=== PATIENT | male | born 1970 | race Caucasian/White ===

== ENCOUNTER 2025-04-12 15:33 | Emergency (ER) | payer OTHER, SELFPAY ==
[2025-04-12 15:41] VITALS: BP 163/100; PULSE 81; RESP 18; TEMP 36.9; O2SAT 98
--- NOTE | 2025-04-12 15:50 | XR_ITS ---
Examination: Duplex scan of the lower extremity, unilateral right complete Date and time of exam: April 12, 2025 1617 hours INDICATIONS: Injury to the right leg 2 hours ago with right leg pain Technique: Duplex scan of the extremity veins using B-mode/grayscale imaging and Doppler spectral analysis and color flow Attention is directed to internal echogenicity, compression and augmentation involving these veins, color flow assessment, spectral analysis Findings: Major deep venous structures in the extremity demonstrate normal course and caliber. There is no evidence of deep vein thrombosis. Normal color flow and spectral analysis Impression: Negative for DVT..
[2025-04-12 16:34] LABS: Potassium 4.5 mMol/L (3.4-5.1)
[2025-04-12 17:52] VITALS: BP 164/89; PULSE 78; RESP 18; TEMP 36.7; O2SAT 97
[2025-04-12 17:53] VITALS: BMI 36.1
[2025-04-12] MEDS: KETOROLAC INJ 60 MG/2 ML VIAL 30 MG IM (18:09)
[2025-04-12] MEDS: DEXAMETHASONE SOD PHOS INJ 10 MG/ML VIAL IM (18:09)
--- NOTE | 2025-04-12 18:16 | PD.EDLOWEX ---
Lower Extremity Injury RME/HPI General Chief Complaint: Extremity Injury, Lower Stated Complaint: INJURED THIGH Time Seen by Provider: 04/12/25 15:35 Source: patient and family Arrival date/time: 04/12/25 15:33 This is a case of 54-year-old male who came in the emergency room due to pain on the right anterior thigh for 4 days patient states that [place] accidentally he twisted his right thigh sustaining pain denies any numbness weakness or tingling sensation Mode of arrival: ambulatory Limitations: no limitations Related Data Home Medications ?Medication ?Instructions ?Recorded ?Confirmed aspirin 81 mg tablet,delayed 81 mg PO QDAY 10/31/19 02/02/20 release (Adult Aspirin Regimen) loratadine 10 mg tablet (Claritin) 10 mg PO QDAY 10/31/19 02/02/20 Previous Rx's ?Medication ?Instructions ?Recorded lactulose 20 gram/30 mL oral 20 gm (30 mL) PO QDAY #300 mL 10/31/19 solution doxycycline hyclate 100 mg tablet 100 mg PO BID #14 tabs 02/04/20 hydrocodone 7.5 mg-acetaminophen 1 tab PO Q4HR PRN Pain #30 tabs 02/04/20 325 mg tablet pantoprazole 40 mg tablet,delayed 40 mg PO ACBR PRN dyspepsia #21 02/04/20 release tabs cyclobenzaprine 10 mg tablet 10 mg PO BID #20 tabs 04/12/25 hydrocodone 5 mg-acetaminophen 325 1 tab PO Q6H PRN pain #15 tabs 04/12/25 mg tablet Allergies Allergy/AdvReac Type Severity Reaction Status Date / Time No Known Allergies Allergy Verified 04/12/25 15:35 Review of Systems Review of Systems Systems Reviewed: All systems reviewed, normal except as documented Constitutional Constitutional: Reports system reviewed and no additional complaints, except as documented, Reports as per HPI, Denies frequent falls, Denies headache(s) and Denies weakness Eyes Eyes: Denies loss of vision ENT Ears, Nose, Mouth, and Throat: Denies abnormal hearing, Denies disequilibrium, Denies dizziness, Denies headache(s), Denies neck pain and Denies vertigo Cardiovascular Cardiovascular: Reports system reviewed and no additional complaints, except as documented, Reports as per HPI and Denies syncope Respiratory Respiratory: Reports system reviewed and no additional complaints, except as documented and Reports as per HPI Gastrointestinal Gastrointestinal: Reports system reviewed and no additional complaints, except as documented and Reports as per HPI Musculoskeletal Musculoskeletal: Reports system reviewed and no additional complaints, except as documented, Reports as per HPI, Denies abnormal gait, Denies arthralgias, Denies atrophy, Denies back pain, Denies deformity, Denies joint swelling, Denies limited range of motion, Denies loss of height, Denies muscle cramps, Denies muscle weakness, Denies myalgias, Denies neck pain, Denies numbness, Denies radiating pain into limb, Denies stiffness and Denies tingling Neurologic Neurologic: Reports system reviewed and no additional complaints, except as documented, Reports as per HPI, Denies abnormal gait, Denies abnormal hearing, Denies abnormal movements, Denies abnormal speech, Denies behavioral changes, Denies burning sensations, Denies confusion, Denies convulsions, Denies disequilibrium, Denies dizziness, Denies localized weakness, Denies frequent falls, Denies headache(s), Denies lack of coordination, Denies loss of vision, Denies memory loss, Denies numbness, Denies other visual disturbances, Denies paresthesias, Denies radicular pain, Denies restless legs, Denies seizure-like activity, Denies sensory deficit, Denies syncope, Denies tingling, Denies tremor(s), Denies vertigo and Denies weakness Psychiatric Psychiatric: Denies behavioral changes, Denies confusion and Denies memory loss Past Medical History Past Medical History NEUROLOGIC: Negative Neurological Disorders, Dementia, Brain Tumor or Seizures CARDIAC: Negative Cardiac Disorders, Atrial Fibrillation, Coronary Artery Disease or Congestive Heart Failure RESPIRATORY: Negative Chronic Obstructive Pulmonary Disease (COPD), Bronchitis or Pulmonary Fibrosis GASTROINTESTINAL: Negative Gastrointestinal Disorders, Cirrhosis or Celiac Disease GENITOURINARY: Negative Genitourinary Disorders, Renal Disease, Kidney Stones or Inguinal Hernia REPRODUCTIVE: Negative Genital Herpes or Syphilis MUSCULOSKELETAL: Negative Musculoskeletal Disorders or Marfan's Syndrome ENT: Negative Blind ENDOCRINE: Negative Endocrine Disorders, Diabetes Mellitus Type 1, Diabetes Mellitus Type 2, Hypoglycemia or Hyperthyroidism HEMATOLOGIC: Negative Blood Disorders or Hemophilia PSYCHO/SOCIAL: Negative Psychiatric Problems or Bipolar Disorder OTHER HISTORY: Negative Down Syndrome, Developmental Delay, Blood Transfusions, Blood Transfusion Reaction or Anesthesia Reactions Social History SMOKING STATUS: Never smoker SUBSTANCE USE: does not use ED Exam General Limitations: Present no limitations General appearance: Present alert Head Head exam: Present atraumatic Eye Eye exam: Present normal appearance, PERRL and EOMI ENT ENT exam: Present normal exam, normal oropharynx and mucous membranes moist Neck Neck exam: Present normal inspection, full ROM and trachea midline Chest Chest inspection: Present normal inspection and symmetric chest wall rise Respiratory Respiratory exam: Present normal lung sounds bilaterally Cardiovascular Cardiovascular exam: Present regular rate, normal rhythm and normal heart sounds Abdominal Exam Abdominal exam: Present soft and normal bowel sounds Extremities Exam Extremities exam: Present normal inspection and full ROM Expanded Lower Extremity Exam Upper leg exam: Present normal inspection, full ROM, tenderness (There is mild to moderate tenderness on the right anterior thigh mild swelling no crepitation no deformity no redness no ecchymosis ROM intact pulses were full and equal motor or sensory pulses normal capillary refill less than 2 seconds) and other (Negative Ravi signs negative Homans signs no claudication); Absent swelling, abrasion, laceration, ecchymosis, deformity, crepitus, dislocation or erythema Back Exam Back exam: Present normal inspection and full ROM; Absent tenderness, CVA tenderness (R), CVA tenderness (L), muscle spasm, paraspinal tenderness, vertebral tenderness, rashes, sciatic notch tenderness (R), sciatic notch tenderness (L), straight leg raise (R) or straight leg raise (L) Neurological Exam Neurological exam: Present alert, oriented X3, CN II-XII intact, normal gait and reflexes normal; Absent motor sensory deficit Psychiatric Psychiatric exam: Present normal affect and normal mood Skin Skin exam: Present warm, dry, intact and normal color Course Quality Measures none Orders Category Date Time Status Apply knee immobilizer NOW Care 04/12/25 18:02 Active Crutches .NOW Care 04/12/25 18:02 Active US venous doppler LE RT Stat Exams 04/12/25 15:50 Completed Potassium Stat Lab 04/12/25 16:03 Completed Dexamethasone Inj [Decadron Inj] Med 04/12/25 18:02 Discontinued 10 mg IM X1 ONE Ketorolac Inj [Toradol Inj] Med 04/12/25 18:02 Discontinued 30 mg IM X1 ONE Vital Signs Vital signs: Vital Signs Temperature 98.4 F 04/12/25 15:41 Pulse Rate 81 04/12/25 15:41 Respiratory Rate 18 04/12/25 15:41 Blood Pressure 163/100 H 04/12/25 15:41 Pulse Oximetry (%) 98 04/12/25 15:41 Oxygen Delivery Method Room Air 04/12/25 15:41 Oxygen saturation 98% in room air Extremity Injury, Lower MDM Narrative MDM Narrative:: This is a case of 54-year-old male who came in the emergency room due to pain on the right anterior thigh for 4 days patient states that he was [place] the [place] when accidentally he twisted his right thigh sustaining pain denies any numbness weakness or tingling sensation physical examination patient is awake alert oriented not in distress nontoxic looking back exam is normal no paraspinal tenderness no paravertebral tenderness steady gait noted mild to moderate tenderness only on the right anterior thigh no redness no crepitation no deformity mild swelling knee leg ankle foot exam were normal ROM intact neurovascular intact ultrasound of the right lower extremity is negative for DVT patient potassium is normal at this point patient symptoms possible due to muscle spasm versus a quadricep muscle injury of the right anterior thigh I discussed with the patient my impression patient was given Toradol and dexamethasone for inflammation and pain which pain of the patient decreased patient was prescribed also with muscle relaxant Flexeril and Cushing as needed for severe pain they were advised to see an Ortho for possible MRI to rule out a muscle injury and for any worsening symptoms or any emergent concern they need to return to the emergency room immediately or call 911 Patient was discharged with comfortable condition walking with stable gait. Patient verbalized no further complains explained diagnosis and answered patient question. Patient is comfortable with the proposed management plan including the need to follow up with his/her primary care physician and any specialist if applicable Discussed patient for any urgent condition or worsening sx, He/She needed to go to emergency room immediately or call 911. Patient acknowledge the responsibility to follow up as instructed and to monitor her/his symptoms. For any persistence of the symptoms for more than 3-5 days return precaution advised. Discussed the result of the test and was given printed discharge instruction Patient data External records reviewed:: [facility] previous records Clinical information provided by:: patient Social determinants that could affect healthcare access:: none Patient has the following chronic illnesses:: None How is presenting disease/condition affected by chronic disease/condition?: no chronic disease Evaluation data The following diagnostics were reviewed and interpreted by me:: lab results and radiology exam(s) Lab and/or radiology exams considered but not ordered:: Reviewed Interpretation Summary: Reviewed Medications / Prescriptions Medications or Prescriptions considered but not ordered:: Given Medication administrations:: Medication Administration History Discontinued Medications Dexamethasone Sodium Phosphate (Dexamethasone Sod Phos Inj 10 Mg/Ml Vial) 10 mg IM X1 ONE Stop: 04/12/25 18:03 Last Admin: 04/12/25 18:09 Dose: 10 mg Documented By: SEGUN Ketorolac Tromethamine (Ketorolac Inj 60 Mg/2 Ml Vial) 30 mg IM X1 ONE Stop: 04/12/25 18:03 Last Admin: 04/12/25 18:09 Dose: 30 mg Documented By: SEGUN Given Consultations Consultation(s) initiated? (list below): No Diagnosis Extremity Injury, Lower Differential Diagnosis: other (Quadricep muscle injury muscle spasm) Most likely diagnosis given after review of the tests above:: Right anterior thigh pain Admission Indicated Admission indicated?: not indicated Explain why admission is indicated or not indicated:: Not indicated Admission Request Was there a request for admission?: No Admission Attestation Admission request attestation: Not indicated Disposition Plan Disposition Plan: Discharge Discharge Attestation Discharge Attestation: The patient and all family members were given an opportunity to ask questions and understood the discharge instructions. Discharge instructions specifically effects, indications for sooner follow up or return to the emergency department, and the expected course of current diagnosis. Patient condition: Stable Discharge Plan Plan Patient Disposition: HOME (Self Care) Prescriptions/Referrals Prescriptions/Med Rec: New cyclobenzaprine 10 mg tablet 10 mg PO BID Qty: 20 0RF Rx Instructions: No driving hydrocodone-acetaminophen 5-325 mg tablet 1 tab PO Q6H MDD max 4 tabs per day PRN (Reason: pain) Qty: 15 0RF No Action aspirin [Adult Aspirin Regimen] 81 mg tablet,delayed release (DR/EC) 81 mg PO QDAY loratadine [Claritin] 10 mg tablet 10 mg PO QDAY lactulose 20 gram/30 mL solution 20 gm PO QDAY Qty: 300 0RF hydrocodone-acetaminophen 7.5-325 mg Tablet 1 tab PO Q4HR MDD 4 PRN (Reason: Pain) Qty: 30 0RF pantoprazole 40 mg Tablet,Delayed Release (Dr/Ec) 40 mg PO ACBR MDD 1 PRN (Reason: dyspepsia) Qty: 21 0RF doxycycline hyclate 100 mg tablet 100 mg PO BID Qty: 14 0RF Referrals: No Primary/Family,Physician [Primary Care Provider] - In 1 week Problem List Clinical Impression: Pain of right thigh, Muscle spasm Patient/Caregiver Discharge Instructions Education Materials: ALEXA ERAZO Muscle Spasm, ED Pain, Acute, Uncertain Cause Additional Instructions: Follow-up with your primary care physician in 2 days for reevaluation and to be referred to orthopedic surgeon for further evaluation and treatment of your right thigh pain for possible MRI to rule out muscle injury and pain management doctor for pain control ice pack and warm compress as needed for pain keep the knee immobilizer and use of crutches for ambulation is advised keep elevate your right lower extremities to decrease swelling is advised Print Language: Khmer Stand Alone Forms: Marlene Award Info., Patient Portal Info Letter PA/TRIAL COURT JUDGE Supervising Physician PA/NURIA Supervising Physician: dr avalos
== END 2025-04-12 18:32 | disposition home or self-care (01) ==
PROVIDERS: Nurse Practitioner Family; Emergency Provider Family Medicine
DX: M79.651 Pain in right thigh (principal); M62.838 Other muscle spasm
CPT/HCPCS: 36415; 84132; 93971; 96372; 99284; J1100; J1885